=== PATIENT | female | born 1985 | race Caucasian/White ===

== ENCOUNTER → 2016-12-26 | Outpatient (CLI) | payer BC ==
[~2016-12-26] MED LIST: PRENTAB26 PO
[2016-12-26 12:59] LABS: GTGD 50 Grams
== END | disposition home or self-care (01) ==
LOC: C.LAB1850 09:56
PROVIDERS: ATTEND Obstetrics & Gynecology
DX: Z34.02 Encounter for supervision of normal first pregnancy, second trimester (principal)

== ENCOUNTER → 2017-03-16 | Outpatient (CLI) | payer BC ==
[2017-03-16 19:39] LABS: URINE APPEARANCE CLEAR (CLEAR); URINE BILIRUBIN NEG (NEG); URINE COLOR YELLOW; URINE NITRITE NEG (NEG); URINE SPECIFIC GRAVITY 1.018 (1.000-1.030); UROBILINOGEN NEG (NEG)
[2017-03-16 19:45] LABS: MANUAL MICROSCOPIC REQUIRED? NO; REVIEW REQ? NO
== END | disposition home or self-care (01) ==
LOC: C.LABSPEC 18:00
PROVIDERS: ATTEND Obstetrics & Gynecology
DX: O09.02 Supervision of pregnancy with history of infertility, second trimester (principal); Z3A.00 Weeks of gestation of pregnancy not specified

== ENCOUNTER → 2017-03-20 | Outpatient (CLI) | payer BC ==
[2017-03-20 19:48] LABS: GTGD 50 Grams
== END | disposition home or self-care (01) ==
LOC: C.LAB1850 16:00
PROVIDERS: ATTEND Obstetrics & Gynecology
DX: O09.02 Supervision of pregnancy with history of infertility, second trimester (principal); Z3A.00 Weeks of gestation of pregnancy not specified

== ENCOUNTER → 2017-05-12 | Outpatient (CLI) | payer BC | END | disposition home or self-care (01) | LOC: C.LABSPEC 17:45 | PROVIDERS: ATTEND Obstetrics & Gynecology | DX: O09.03 Supervision of pregnancy with history of infertility, third trimester (principal) ==

== ENCOUNTER 2017-05-27 09:43 | Inpatient (IN) | payer BC ==
[~2017-05-27] VITALS: Ht 152.4 cm; Wt 58.5 kg
[2017-05-27] MEDS ORDERED: LACTATED RINGER'S 1000ML 1,000 ML IV PRN (10:12)
[2017-05-27 10:41] LABS: HEMATOCRIT 35.9 % (37-47); MEAN CELL VOLUME 98.9 fL (80-100); MEAN CORPUSCULAR HEMOGLOBIN 33.3 pg (25-34); MEAN CORPUSCULAR HGB CONC 33.7 g/dl (32-36); MEAN PLATELET VOLUME 10.7 fL (7.4-10.4); PLATELET COUNT 237 K/uL (130-400); RED BLOOD COUNT 3.63 M/uL (4.2-5.4); WHITE BLOOD COUNT 10.64 K/uL (4.8-10.8)
[2017-05-27 10:42] VITALS: Ht 152.4 cm; Wt 58.5 kg
[2017-05-27] MEDS ORDERED: PRENTAB26 PO (10:42)
[2017-05-27] MEDS ORDERED: LACTATED RINGER'S 1000ML 500 ML IV PRN ×2 (14:17→22:19)
[2017-05-27] MEDS: LACTATED RINGER'S 1000ML 1,000 ML IV SCH (14:25)
[2017-05-27] MEDS ORDERED: OXYTOCIN 30 UNITS/500ML NSS IV PRN (14:30)
[2017-05-27] MEDS ORDERED: ACETAMINOPHEN IV 100 ML IV PRN (20:15)
[2017-05-27] MEDS ORDERED: ZOLPIDEM TARTRATE 5 MG TAB PO PRN (20:15)
[2017-05-27] MEDS ORDERED: EpHEDrine SULFATE INJ 50 MG/ML AMP ONE (21:31)
[2017-05-27] MEDS ORDERED: BUPIVACAINE 0.25% 30 ML VIAL ONE (21:31)
[2017-05-27] MEDS ORDERED: FENTANYL 2MCG/ML ROPIV 1.25MG/ML 100ML BAG EPI ONE (21:31)
[2017-05-27] MEDS ORDERED: FENTANYL CITRATE INJ 50 MCG/1 ML 2 ML VIAL ONE (21:32)
[2017-05-27] MEDS ORDERED: NALOXONE HCL INJ 1 MG in SODIUM CHLORIDE 0.9% 1000ML 1,000 ML IV PRN (22:19)
[2017-05-27] MEDS ORDERED: DiphenhydrAMINE HCL 50 MG/ML VIAL IV PRN (22:30)
[2017-05-27] MEDS ORDERED: FENTANYL 2MCG/ML ROPIV 1.25MG/ML 100ML BAG EPI PRN (22:30)
[2017-05-27] MEDS ORDERED: ONDANSETRON INJ 2 MG/ML 2 ML VIAL IV PRN (22:30)
[2017-05-27] MEDS ORDERED: EpHEDrine SULFATE INJ 50 MG/ML AMP IV PRN (22:30)
[2017-05-27] MEDS ORDERED: NALBUPHINE HCL INJ 10 MG/ML AMP IV PRN (22:30)
[2017-05-27] MEDS ORDERED: NALOXONE HCL INJ 0.4 MG/1 ML VIAL/CARP IV PRN (22:30)
[2017-05-28] MEDS: LACTATED RINGER'S 1000ML 1,000 ML IV SCH (01:29)
[2017-05-28] MEDS ORDERED: LANOLIN OINT EXT PRN ×2 (03:45)
[2017-05-28] MEDS ORDERED: HYDROCORTISONE ACETATE 25 MG SUPP PR PRN (03:45)
[2017-05-28] MEDS ORDERED: BENZOCAINE 20% AER SPR 82.5 GM CAN EXT PRN (03:45)
[2017-05-28] MEDS ORDERED: ACETAMINOPHEN 325 MG TAB PO PRN (03:45)
[2017-05-28] MEDS ORDERED: SUPERCREAM 0.870 % 15GM JAR EXT PRN (03:45)
[2017-05-28] MEDS ORDERED: OXYTOCIN 30 UNITS/500ML NSS IV PRN (03:45)
[2017-05-28] MEDS ORDERED: ACETAMINOPHEN/CODEINE 300/30MG TAB PO PRN ×2 (03:45)
[2017-05-28] MEDS: IBUPROFEN 600 MG TAB PO PRN ×5 (04:52→21:59)
--- NOTE | 2017-05-28 05:55 | Anesthesia Procedure Note ---
Anesthesia Epidural Removal Nt Date & Time May 28, 2017 at 05:55 Vital Signs Pain Intensity: 2.0 Notes Mental Status: alert / awake / arousable, participated in evaluation Nausea / Vomiting: adequately controlled Pain: adequately controlled Airway Patency, RR, SpO2: stable & adequate BP & HR: stable & adequate Hydration State: stable & adequate Neuraxial Anesthesia: was administered Anesthetic Complications: no major complications apparent, pt satisfied with anesthetic care Epidural: removed without complications, with tip intact
[2017-05-28 08:00] VITALS: BP 95/59; PULSE 78; TEMP 36.6; O2SAT 97
[2017-05-28] MEDS: PRENATAL VITAMIN TAB PO SCH (08:44)
[2017-05-28] MEDS: DOCUSATE SODIUM 100 MG CAP PO SCH ×2 (08:44→19:32)
[2017-05-28] MEDS: FERROUS SULFATE 325 MG TAB PO SCH (08:44)
[2017-05-28 12:00] VITALS: BP 114/77; PULSE 80; TEMP 36.8; O2SAT 97
--- NOTE | 2017-05-28 12:07 | DELIVERY SUMMARY ---
DATE OF OPERATION: 05/28/2017 DELIVERY NOTE DATE OF DELIVERY: 05/28/2017. FINDINGS: Viable male with Apgars of 8 and 9. Baby delivered spontaneously over a midline second degree laceration. Cord gasses, cord blood samples obtained. Placenta delivered spontaneously. Laceration repaired with 4-0 and 2-0 Vicryl in a routine fashion. Estimated blood loss 300 mL. LABOR NOTE: The patient is a 32-year-old 1, para 0 with an EDC of 03 June who was admitted at 39+ weeks gestational age with spontaneous rupture of membranes. Membranes ruptured at 0800 hours on the 27 of May. She described the fluid as clear with no real contractions. The patient has had a benign course. her blood type is 0 positive, antibody negative, rubella immune, hepatitis B negative. She declined a quad screen. She had a normal 1-hour Glucola x2 and a negative 3rd trimester beta strep culture. Upon admission patient was 3 cm dilated, 50% efface, -2 station with gross rupture of membranes. Tracing was category 1. The patient wished to ambulate to see if contractions would initiate. She ambulated for over 4 hours with only irregular contractions and no cervical change. At that point 6 hours after rupture of membranes the patient consent to Pitocin per induction protocol. The patient progressed into an active labor plane. At 7 cm she requested and received an epidural from anesthesia and went to full dilatation. She pushed for approximately 2 hours with a category tracing with variables with return to baseline and variability. She delivered spontaneously over a midline second degree laceration. Cord was clamped and cut. Cord gasses, cord blood samples were obtained. Placenta delivered spontaneously. Inspection of the perineum showed a midline second degree laceration. This was repaired with 4-0 and 2-0 Vicryl in a routine fashion. Estimated blood loss was 300 mL. I attest to the content of the Intraoperative Record and any orders documented therein. Any exception s are noted below.
[2017-05-28 15:45] VITALS: BP 102/67; PULSE 80; TEMP 36.9; O2SAT 97
[2017-05-28 20:10] VITALS: BP 104/72; PULSE 94; TEMP 36.8; O2SAT 97
[2017-05-28 23:00] VITALS: BP 104/68; PULSE 81; TEMP 36.7; O2SAT 97
[2017-05-29] MEDS: IBUPROFEN 600 MG TAB PO PRN ×6 (02:01→23:52)
[2017-05-29 03:40] VITALS: BP 105/73; PULSE 86; TEMP 36.7; O2SAT 97
--- NOTE | 2017-05-29 06:32 | OB/GYN Progress Note ---
[facility] Progress Note Date of Service May 29, 2017. Subjective conversation w/ patient, physical exam, chart review, lab review Ambulation: ambulating normally Voiding: no voiding problems Passing Gas: Yes Diet Tolerance: Regular Diet Lochia: Small Feeding Type: Breast Feeding Pain: Low abd soreness with breast feeding Review of Systems Constitutional: No fever, No chills Respiratory: No cough, No shortness of breath Cardiac: No chest pain Abdomen: No nausea, No vomiting, No diarrhea Female : No dysuria Objective Vital Signs Date Time Temp Pulse Resp B/P (MAP) Pulse Ox O2 Delivery O2 Flow Rate FiO2 05/29/17 03:40 36.7 86 20 105/73 (84) 97 Room Air 05/28/17 23:00 36.7 81 20 104/68 (80) 97 Room Air 05/28/17 23:00 Room Air 05/28/17 20:10 Room Air 05/28/17 20:10 36.8 94 18 104/72 (83) 97 Room Air 05/28/17 15:45 97 Room Air 05/28/17 15:45 36.9 80 18 102/67 (79) 97 Room Air 05/28/17 12:00 36.8 80 16 114/77 (89) 97 Room Air 05/28/17 08:00 97 Room Air 05/28/17 08:00 36.6 78 16 95/59 (71) 97 Room Air Physical Exam General Appearance: WELL-APPEARING, WD/WN, NO APPARENT DISTRESS Respiratory/Chest: lungs clear, normal breath sounds Cardiovascular: regular rate, rhythm Abdomen: normal bowel sounds, non tender, soft Fundus: Firm, Tender (minimal, appropriate), Relation to Umbilicus (approx at umbilicus, though deviated to the LLQ) Extremities: normal range of motion, non-tender, no pedal edema, no calf tenderness Laboratory Results Last 24 Hours Test 05/29/17 04:44 Assessment and Plan Post- Day Number: 1 Continue Routine Care: 32yo s/p vaginal delivery, now PPD #1. - Blood type O positive. GBS negative. Rubella immune. - Vital signs reviewed and stable. - Pain controlled with motrin. - No leg swelling or tenderness on calf palpation. Encourage ambulation. - Encourage breast feeding. - Hemoglobin pre-delivery 12.1, post-delivery pending this AM. Bleeding has improved. Continue to monitor clinically. - Continue routine post-vaginal delivery care. - Pt agreed with above plan, all current questions answered. Gregor Escobar MD, PGY1 Machinist Brake Physician Supervision Note: I interviewed and examined the patient. Discussed with Dr. Escobar and agree with findings and plan as documented in the note. Any exceptions or clarifications are listed here: [None] Documented By: Stuart Bose Resident Tracking Resident Involvement: Resident Care Provided Care Provided: OB Delivery (morning rounds)
[2017-05-29 07:35] LABS: HEMATOCRIT 31.3 % (37-47)
[2017-05-29 08:00] VITALS: BP 105/73; PULSE 86; TEMP 36.8; O2SAT 98
[2017-05-29] MEDS: DOCUSATE SODIUM 100 MG CAP PO SCH ×2 (08:29→19:41)
[2017-05-29] MEDS: PRENATAL VITAMIN TAB PO SCH (08:29)
[2017-05-29] MEDS: FERROUS SULFATE 325 MG TAB PO SCH (08:29)
[2017-05-29 15:42] VITALS: BP 102/71; PULSE 90; TEMP 37
[2017-05-29] MEDS ORDERED: BISACODYL 5 MG TABEC PO SCH (20:00)
[2017-05-29 23:45] VITALS: BP 108/72; PULSE 74; TEMP 36.8
--- NOTE | 2017-05-30 06:58 | OB/GYN Progress Note ---
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 Subjective conversation w/ patient, physical exam, chart review, lab review Ambulation: ambulating normally Voiding: no voiding problems Passing Gas: Yes Diet Tolerance: Regular Diet Lochia: Small Feeding Type: Breast Feeding Pain: Says her vaginal area feels "bruised" but not outright painful Review of Systems Constitutional: No fever, No chills Respiratory: No cough, No shortness of breath Cardiac: No chest pain Abdomen: No nausea, No vomiting, No diarrhea Female : No dysuria Objective Vital Signs Date Time Temp Pulse Resp B/P (MAP) Pulse Ox O2 Delivery O2 Flow Rate FiO2 05/29/17 23:45 Room Air 05/29/17 23:45 36.8 74 20 108/72 (84) Room Air 05/29/17 16:15 Room Air 05/29/17 15:42 37.0 90 18 102/71 (81) Room Air 05/29/17 08:00 98 Room Air 05/29/17 08:00 36.8 86 16 105/73 (84) 98 Room Air Physical Exam General Appearance: WELL-APPEARING, WD/WN, NO APPARENT DISTRESS Respiratory/Chest: lungs clear, normal breath sounds Cardiovascular: regular rate, rhythm, no edema Abdomen: normal bowel sounds, non tender, soft Fundus: Firm, Non-Tender, Relation to Umbilicus (approx one down) Extremities: normal range of motion, non-tender, no calf tenderness, + pedal edema (minimal (B) swelling) Laboratory Results Last 24 Hours Test 05/29/17 07:02 Hemoglobin 10.0 g/dL Hematocrit 31.3 % Assessment and Plan Post- Day Number: 1 Continue Routine Care: 32yo s/p vaginal delivery, now PPD #2. - Blood type O positive. GBS negative. Rubella immune. - Vital signs reviewed and stable. - Pain controlled with motrin. Staff have discussed tx recs for her vaginal swelling/bruising with pt. - Minimal (B) foot swelling but no leg swelling or tenderness on calf palpation. Encourage ambulation. - Encourage breast feeding. - Hemoglobin pre-delivery 12.1, post-delivery 10.0. Continue to monitor clinically. - Continue routine post-vaginal delivery care. - Pt agreed with above plan, all current questions answered. Gregor Escobar MD, PGY1 Log Feeder Physician Supervision Note: I interviewed and examined the patient. Discussed with Dr. Escobar and agree with findings and plan as documented in the note. Any exceptions or clarifications are listed here: [None] Documented By: Audra Landers Resident Tracking Resident Involvement: Resident Care Provided Care Provided: OB Delivery (morning rounds)
--- NOTE | 2017-05-30 07:18 | Discharge Instructions ---
Discharge Instructions Date of Service May 30, 2017. Admission Reason for Admission: R/O Ruptured Membrane Discharge Discharge Diagnosis / Problem: Recovery from vaginal delivery Discharge Goals Goal(s): Routine recovery after delivery Medications Continue Dispensed Medications: supercream, dermaplast, tucks, lansinoh Activity Recommendations Activity Limitations: per Instructions/Follow-up section . Instructions / Follow-Up Instructions / Follow-Up ACTIVITY RECOMMENDATIONS: * Gradual return to full activity over the next 2-3 weeks. * No lifting - nothing heavier than baby over the next 2-3 weeks. * Do not engage in vigorous exercise, sexual activity or sports until cleared by your physician. * Do not drive or operate any motorized equipment until cleared by your physician. * You may shower/bathe daily. MEDICATIONS: For discomfort or pain, you may use Acetaminophen (Tylenol), Ibuprofen (Advil), or Naproxen (Aleve) following the package directions. For constipation you may use Colace following the package directions. BREAST CARE: If you are not breast feeding: * Wear a supportive bra 24 hours a day for one to two weeks. * Avoid stimulating your breasts and nipples as much as possible during the first few weeks after delivery. * When taking a shower, have the warm water hit your back, not breasts. * When your breasts feel full, apply ice packs. Usually three to four times a day helps ease the discomfort. * Take a mild pain medication (Tylenol / Motrin) when you are uncomfortable. If breast feeding: * Use breast milk to lubricate nipples. Lansinoh cream may be used for sore nipples. You do not need to remove cream prior to breast feeding. If using a different brand of cream, check the label for directions regarding removal of cream prior to nursing. * Wear a supportive bra. * If having problems with breasts or breast feeding, call a data warehouse consultant or your health care provider. EPISIOTOMY CARE: After delivery, if you have an episiotomy (stitches), the following steps will ease discomfort and aid healing. * For the first 24 hours after delivery, place ice packs next to your episiotomy to help reduce swelling. * After the first 24 hour-period, sitz baths, either portable or in the tub, are suggested. A shower with a shower arm sprayed over the episiotomy may be comforting. * Elida care should be done after each voiding and bowel movement. Squirt warm water from a plastic bottle over the perineum (region of the body between the anus and urinary opening) and pat dry. * Use Dermoplast to ease discomfort. Shake container. [place] directly over the episiotomy. Place a Tucks on a clean sanitary pad next to your episiotomy. SPECIAL CARE INSTRUCTIONS: When you are discharged from the hospital, it is important for you to follow the instructions listed below: * During the first week at home, you should be able to care for yourself and your baby. In addition, the usual light household activities are encouraged. * Limit your activities to the way you feel. Do not try to clean the house or move furniture. Be sensible. * If you actively engage in sports and have done so up until the time of your delivery, you may resume these activities as soon as you feel able. This may take up to one month or even longer. Use good judgment. * Continue to take your vitamins for at least six weeks after the of your baby. * Your diet need not be limited unless you were on a special diet before your delivery. Breast-feeding mothers need around 2500 calories per day and at least 64-80 ounces of fluid per day (8 to 10 glasses). * You should eat foods from the four major food groups. Crash diets or fad diets are to be avoided. Eating lean meats, fresh fruits and vegetables, low-fat dairy products, high fiber foods and a regular exercise program, will help you get back to your pre- weight without putting your health at risk. * Constipation is sometimes a problem after delivery. Take a mild laxative as needed. If breast feeding, Milk of Magnesia is acceptable to use. You may use a suppository or Fleets enema if no episiotomy. * A daily shower or tub bath is suggested. Be sure to thoroughly and gently dry the perineum. * A bloody vaginal discharge will usually continue until around four weeks post . A small amount of bleeding may continue for as long as six weeks. Vaginal discharge changes from the bright red bleeding after delivery to pink then brownish and finally yellowish-pink before becoming white and disappearing. * Bleeding may increase with activity. Your first period may come in 4-8 weeks. If you are breast feeding, your period may be delayed even longer. * [place] (sex) can begin whenever both you and your partner feel comfortable and do not have any form of genital infection. It is recommended that you wait at least six weeks for internal and external healing to occur. If you have questions, please talk to your health care practitioner. A condom should be used to prevent infection and . * Foreplay, gentle intercourse and lubrication is very important the first several times to prevent pain. A water-based lubricant such as K-Y jelly or Astroglide may be used. * If you have RH negative blood and your baby is RH positive, you will receive RHOGAM by injection prior to discharge. The nurse will give you a card to keep with you that has the date and place that you received RHOGAM after delivery. * During your care, you had a Rubella screen done to check for the presence of rubella antibodies in your blood. If your test was negative, you will receive a Rubella vaccine prior to discharge. This vaccine may cause a fever, soreness at the injection site and flu-like symptoms. If these symptoms persist, notify your health care practitioner. is not advised for one month after a Rubella vaccine. * Verbalizes understanding of car seat law as reviewed with patient nursing. * Car Seat hand-out given and reviewed with patient by nursing. * Shaken baby information reviewed with patient by nursing. Call you doctor if: * Heavy bleeding (saturating several pads an hour) or passing clots the size of your fist. * A fever >101 degrees F (38.3 degrees C) on two occasions four hours apart and /or chills. * Unusual pain in the pelvic or vaginal areas. * "Baby Blues" lasting longer than two weeks. If you have any questions or concerns, call your health care practitioner at . FOLLOW UP VISIT: * Please call the office at to schedule a 6 week examination. It is important you keep this appointment. It is important for you to make arrangements for either yearly or twice yearly check-ups thereafter. Current Hospital Diet Patient's current hospital diet: Regular OB Diet Discharge Diet Recommended Diet: Regular OB Diet Pending Studies Studies pending at discharge: no Medical Emergencies . Who to Call and When: Medical Emergencies: If at any time you feel your situation is an emergency, please call 911 immediately. . Non-Emergent Contact Non-Emergency issues call your: Make Up Girl . . "Provider Documentation" section prepared by Gregor Escobar. . VTE Core Measure Inpt VTE Proph given/why not?: Treatment not indicated
[2017-05-30 07:30] VITALS: BP 104/78; PULSE 67; TEMP 36.8; O2SAT 99
[2017-05-30] MEDS: DOCUSATE SODIUM 100 MG CAP PO SCH (08:32)
[2017-05-30] MEDS: PRENATAL VITAMIN TAB PO SCH (08:32)
[2017-05-30] MEDS: IBUPROFEN 600 MG TAB PO PRN ×2 (08:32→12:49)
[2017-05-30] MEDS: FERROUS SULFATE 325 MG TAB PO SCH (08:32)
[2017-05-30 14:50] VITALS: BP_DIAS 78; PULSE 67; TEMP 36.8
== END 2017-05-30 15:20 | disposition home or self-care (01) | DRG 775 ==
LOC: C.OPB 09:43 → C.LD 09:44 → C.OPB 10:14 → C.LD 10:44 → C.OBG 05-28 06:49 → EDSTATUS 06-03 09:41
PROVIDERS: ADMIT Obstetrics & Gynecology; ATTEND Obstetrics & Gynecology
PROC: 10E0XZZ Delivery of Products of Conception, External Approach (ICD-10-PCS; principal; 2017-05-28)
PROC: 0KQM0ZZ Repair Perineum Muscle, Open Approach (ICD-10-PCS; principal; 2017-05-28)
DX: O70.1 Second degree perineal laceration during delivery (principal); Z3A.39 39 weeks gestation of pregnancy; Z37.0 Single live birth